=== PATIENT | male | born 1935 | race Caucasian/White ===

== ENCOUNTER 2019-12-05 10:51 | Emergency (ER) | payer MEDICARE, SELFPAY ==
[2019-12-05] VITALS (8 sets, daily range): BP systolic 97–127; BP diastolic 72–109; PULSE 115–122; RESP 14–22; TEMP 36.4; O2SAT 93–98
--- NOTE | ~2019-12-05 | XR_ITS ---
EXAMINATION: XR chest 1V portable DATE: 12/05/2019 11:36 INDICATION: Chest pain TECHNIQUE: frontal view of the chest was obtained. COMPARISON: None FINDINGS: Small calcified nodule at the lateral left lower lung zone consistent with old granulomatous disease. No pulmonary edema, pleural effusion or pneumothorax. Cardiomegaly. Median sternotomy wires, ostial markers and mediastinal surgical clips consistent with prior coronary artery bypass grafting. Three l ead pacemaker/AICD seen with leads projecting over the expected locations of the right atrial appenda ge, apex of the right ventricle and overlying the left ventricle likely having traversed the coronary sinus. Thoracic dextroscoliosis with at least moderate spondylosis. IMPRESSION: 1. Cardiomegaly. No acute cardiopulmonary disease. Reviewed, dictated and finalized at location A.
--- NOTE | 2019-12-05 10:57 | ECG_ITS ---
Measurements Intervals [place] Rate: 115 P: 173 CA: 169 QRS: 214 QRSD: 274 T: 9 QT: 386 QTc: 535 Interpretive Statements ECTOPIC ATRIAL TACHYCARDIA RIGHT AXIS DEVIATION RIGHT BUNDLE BRANCH BLOCK ANTEROLATERAL ST ELEVATION- CONSIDER ACUTE INFARCT INFERIOR ST ELEVATION MYOCARDIAL INFARCT- ACUTE BASELINE ARTIFACT- I, II, AVR, AVL, AVF, V1-V6 ABNORMAL ECG Electronically Signed On 12-05-2019 11:50:38 CDT by Efren Cheng D.O.
[2019-12-05] MEDS: ASPIRIN 81 MG CHEWABLE TABLET 324 MG PO (11:26)
[2019-12-05 11:38] LABS: Basophils Absolute Auto 0.1 K/mm3 (0.0-0.1); Basophils Percent Auto 1.1 % (0.2-1.2); Eosinophils Absolute Auto 0.5 K/mm3 (0-0.3); Eosinophils Percent Auto 5.1 % (0-4.4); Hematocrit 44.6 % (42.0-52.0); Hemoglobin 14.8 g/dL (14.0-18.0); Immature Granulocyte Absolute 0.08 K/mm3 (0.00-0.031); Immature Granulocyte Percent A 0.8 % (0-0.5); Lymphocytes Absolute Auto 2.16 K/mm3 (0.9-3.2); Lymphocytes Percent Auto 21.8 % (18.3-44.2); Mean Corpuscular HGB Conc 33.2 g/dl (32-36); Mean Corpuscular Hemoglobin 34.2 pg (26-34); Mean Platelet Volume 10.7 fl (7.4-10.4); Monocytes Absolute Auto 1.2 K/mm3 (0.1-0.6); Monocytes Percent Auto 11.7 % (2.6-8.5); Neutrophils Absolute Auto 5.9 K/mm3 (1.3-6.7); Neutrophils Percent Auto 59.5 % (45.5-73.1); Platelet Count Result 241 k/mm3 (150-375); Red Blood Count 4.33 M/mm3 (4.6-6.20); Red Cell Distribution Width 13.6 % (11.5-14.5); White Blood Count 9.9 K/mm3 (4.5-10.0)
[2019-12-05 11:49] LABS: Partial Thromboplastin Time 25.8 SECONDS (22.3-36.8); Prothrombin Time 13.1 Seconds (11.1-14.7)
[2019-12-05 11:51] LABS: Blood Urea Nitrogen 38 mg/dL (9-20); Calcium 9.6 mg/dL (8.4-10.2); Carbon Dioxide 27 mmol/L (22-30); Chloride 96 mmol/L (98-107); Estimated CRCL calculation 29 ml/min; Estimated Glomerular Filt Rate 32; Glucose 151 mg/dL (75-110); Potassium 3.9 mmol/L (3.4-5.0); Sodium 135 mmol/L (137-145)
[2019-12-05 12:06] LABS: Troponin I 0.053 ng/mL (0.000-0.034)
--- NOTE | 2019-12-05 12:45 | ED.ARRPALP ---
HPI - Arrhythmia/Palpitations General Chief Complaint: Arrhythmia/Palpitations <DO Rojelio Deleon Last Filed: 12/06/19 07:43> Stated Complaint: in [place] , denies CP <DO Rojelio Deleon Last Filed: 12/06/19 07:43> Time Seen by Provider: 12/05/19 11:03 <DO Rojelio Deleon Last Filed: 12/06/19 07:43> History of Present Illness HPI narrative: Patient presents emergency department from home for possible arrhythmia. Patient states he is followed by cardiology at [facility] Dr. Jim and Dr. Valero. Patient states that he is currently on metoprolol and amiodarone as well as mexiletine. They had been recently changing the dose of the mexiletine. The called the office this morning for follow-up and they asked the patient to hook his [employer] pacemaker when they did this they found the patient who is in [place] and asked the patient come to the nearest emergency department. Patient is currently asymptomatic he denies any chest pain or shortness of breath. The patient does have a pacemaker in place. No other symptoms at this time <DO Rojelio Deleon Last Filed: 12/06/19 07:43> Related Data Home Medications: Home Medications Medication Instructions Recorded Confirmed amiodarone 400 DAILY 12/05/19 aspirin [Adult Low Dose Aspirin] 81 mg PO DAILY 12/05/19 atorvastatin HS 12/05/19 clopidogrel DAILY 12/05/19 ezetimibe mg DAILY 12/05/19 famotidine BID 12/05/19 lidocaine 1 patch TOPICAL DAILY 12/05/19 lorazepam PRN 12/05/19 metoprolol succinate PO DAILY 12/05/19 mirtazapine mg HS 12/05/19 pantoprazole PO DAILY 12/05/19 polyethylene glycol 3350 DAILY 12/05/19 ramelteon 8 mg PO HS 12/05/19 spironolactone 12.5 DAILY 12/05/19 <DO Rojelio Deleon Last Filed: 12/06/19 07:43> Allergies/Adverse Reactions: Allergies Allergy/AdvReac Type Severity Reaction Status Date / Time chlorpromazine Allergy Unknown Verified 12/05/19 11:23 [From Thorazine] <Sumit Anaya DO - Last Filed: 12/06/19 07:43> Review of Systems Review of Systems: Narrative: Gen.: Denies fevers or chills Eyes: Denies eye pain or visual change ENT: Denies congestion Respiratory: Denies shortness of breath or cough CV: See HPI GI: Denies abdominal pain nausea, emesis or diarrhea Musculoskeletal: Denies back pain or muscle pain Neuro: Denies numbness, tingling, weakness or focal weakness Skin: Denies rash Except as documented, all other systems reviewed and negative <Sumit Anaya DO - Last Filed: 12/06/19 07:43> [facility] Past Medical History Medical History: Medical History (Updated 12/06/19 @ 00:00 by Liberty Noriega) Cardiomyopathy CHF (congestive heart failure) Diabetes mellitus type 2 in obese Hypertension Pacemaker <Sumit Anaya DO - Last Filed: 12/06/19 07:43> Social History Social History: Social History (Updated 12/05/19 @ 13:19 by Sumit Anaya DO) Smoking status: Never smoker Gender identity (if verbalized by the patient): Male <Sumit Anaya DO - Last Filed: 12/06/19 07:43> Exam Narrative: Exam Narrative: APPEARANCE: No acute distress, nontoxic, resting in bed EYES: EOMI HEENT: Normocephalic, atraumatic, OMM RESPIRATORY: No respiratory distress Clear to auscultation bilaterally with no rhonchi wheezing or rales. CARDIOVASCULAR: Regular rate and rhythm without murmurs rubs or gallops. ABDOMINAL: Soft, nontender, nondistended, no rebound or guarding MUSCULOSKELETAl: Moves all extremities. No clubbing, cyanosis 2+ edema the bilateral lower extremities NEURO: Awake and alert. Following commands, speech normal, no focal deficits SKIN:: Warm, dry. No rashes lesions or abrasions PSYCHIATRIC: Normal affect/mood, <Sumit Anaya DO - Last Filed: 12/06/19 07:43> Course Course Emergency Course: Upon presentation of initial EKG I called and discussed with Deanna Garces. The EKG was faxed to her and was revi
[2019-12-05 15:01] LABS: Troponin I 0.044 ng/mL (0.000-0.034)
--- NOTE | 2019-12-05 15:45 | PC.NURSE ---
update from [facility]-no beds avail for transfer at this time
--- NOTE | 2019-12-05 17:55 | PC.NURSE ---
update from [facility]-no rooms avail for transfer. pt aware
--- NOTE | 2019-12-05 18:56 | PC.NURSE ---
at approx 1820 pt became agitated stating that he does not want to be transferred to [facility]. Pt states that he no longer needs the care of dr. mcclellan. at approx 1830-pt talking nonsensical about heart condition. pt suspicous of ed staff. girlfriend cannot reason with pt. pt states that he wants to leave [facility]. at 1845-pt ripped monitors off and refuses to allow rn to put them back on. pt now talking that staff conspiring against him. md present talking with pt and pt continues to argue against transfer despite md informing him that he could if he left. at 1850-pt given 0.25 mg ativan iv. security and sitter at bedside. at 1900-pt in bed resting on back without radiation monitor. sitter at bedside
[2019-12-05] MEDS: LORAZEPAM INJ 2 MG/ML VIAL ×2 (19:02→20:14)
--- NOTE | 2019-12-05 19:43 | PC.NURSE ---
Patient still confused, alert to name only. Per patient sitter patient removed IV and is removing monitor wires.
--- NOTE | 2019-12-05 19:47 | PC.NURSE ---
Called [facility] to transport to [place]....ETA 2100. Called [facility]...declined Called [facility]...ETA approximately 20-30 minutes.
--- NOTE | 2019-12-05 20:10 | PC.NURSE ---
Patient began to become combative while trying to re-start IV access. SUSAN Perdue in room. Per SUSAN Perdue verbal order read-back place patient in 4 point restraints to protect patient and staff.
--- NOTE | 2019-12-05 20:14 | PC.NURSE ---
Per SUSAN Perdue, administer 0.5mg Ativan IVP.
--- NOTE | 2019-12-05 20:26 | PC.NURSE ---
Spoke to CLAUDINE Mcclure at [facility] regarding update on patient condition. She was informed patient began to increase in confusion and is currently in restraints. EMS here at this time for transport.
== END 2019-12-05 20:34 | disposition short-term general hospital (02) ==
PROVIDERS: Emergency Provider Emergency Medicine
DX: I47.2 Ventricular tachycardia (principal); I50.9 Heart failure, unspecified; E11.9 Type 2 diabetes mellitus without complications; I11.0 Hypertensive heart disease with heart failure; Z95.0 Presence of cardiac pacemaker; E66.9 Obesity, unspecified; Z68.30 Body mass index [BMI] 30.0-30.9, adult; I47.1 Supraventricular tachycardia; I45.10 Unspecified right bundle-branch block; R94.31 Abnormal electrocardiogram [ECG] [EKG]; Z79.82 Long term (current) use of aspirin
CPT/HCPCS: 36415; 71045; 80048; 84484; 85025; 85610; 85730; 93005; 96372; 99285; A9270; J2060